=== PATIENT | male | born 1990 | race Caucasian/White ===

== ENCOUNTER 2018-04-27 10:13 | Emergency (ER) | payer OTHER ==
--- NOTE | 2018-04-27 10:59 | EDPHY ---
General Time Seen by Provider: 04/27/18 10:44 Narrative: CHIEF COMPLAINT: Dog bite to hand, right ankle injury HISTORY OF PRESENT ILLNESS: Patient presents with complaints of dog bites to both hands and a right ankle injury. This happened just prior to arrival. He says he was "walking with my new puppy," when another dog reportedly attacked. He attempted to break up the fight, and he was bit in the hands by the dog. He does not remember exactly what happened, but he thinks he rolled his right ankle inward. He has severe pain in the right ankle, limiting his ability to walk. He has minimal pain in the hands with some superficial punctures/bites to the dorsum of both hands. He has no bleeding from the hands. No injury elsewhere. Pain in the right ankle severe, limiting his ability to ambulate at this time. No numbness, tingling or weakness. No other associated complaints or modifying factors. TIME OF INJURY: Just prior to arrival TETANUS STATUS: Uncertain. The patient thinks it is less than 10 years and currently verifying with his physician in [place] MEDICAL/SURGICAL/SOCIAL HISTORY: Uncomplicated medical history. Patient uses a stick roller in [place] with telemedicine. REVIEW OF SYSTEMS: Ten systems reviewed and are negative unless otherwise noted in the HPI EXAMINATION General Appearance: Alert, no distress Head: normocephalic, atraumatic Cardiovascular: Symmetric radial pulses 2+. Symmetric DP pulses 2+. Good signs of perfusion to both lower extremities. Neurological: A&O, sensory symmetric, interossei strength is symmetric. Strength of the great toes is 5/5 symmetrically. Skin: Warm and dry, no rash. There is superficial punctures to the dorsum of the left hand, dorsum of the left index finger and dorsum of the right thumb. No bleeding. No laceration. No purulence or signs of subacute infection. Punctures appears stated age. Extremities: Minimal tenderness in the hands with full and symmetric range of motion of the hand and wrist. The right ankle is swollen with lateral malleolus tenderness. No crepitus or deformity. Range of motion of the ankles is limited due to pain on the right. No midfoot tenderness. No pain in the proximal right fibula. No pain in the right snuffbox or left snuffbox of the wrist. DIFFERENTIAL DIAGNOSES: Including but not limited to dog bite, puncture, ankle sprain, ankle fracture, subluxation, dislocation MDM: 11:00 a.m. Right ankle injury and dog bites to the left and right hand with x-ray revealing a nondisplaced right distal fibular fracture. No injury to the tibia. The lacerations/punctures of the hands are very superficial and do not require any repair, delayed or primary. Will irrigate these copiously. The right ankle will need to be splinted, I have chosen and boot and crutches for the patient. I will re-evaluate after irrigation of the wounds. 12:00 p.m. Wounds have been irrigated and he will be discharged home on Augmentin. He was at 1st hesitant to do so, but after discussing risks, benefits and alternatives he has agreed to proceed with Augmentin therapy. He has declined any pain medication or Tdap administration. He would like to verify this physician is current status. We discussed mandatory follow up with Orthopedics for definitive care of the ankle injury. He will contact his stick roller or a local stick roller further care for the hands. I discussed ED precautions for any redness, warmth, difficulty bending or straightening the fingers, purulence or fever. We discussed nonweightbearing on the right lower extremity until seen by Orthopedics for definitive care. He is comfortable this plan and discharged home stable condition. SUPERVISION: This patient was independently evaluated without direct involvement of or examination by the attending physician. ED Precautions: Worsening pain. Erythema, edema, cyanosis, pallor, paresthesia or anesthesia. - History Smoking Status: Never smoked - Objective Vital Signs: Initial Vital Signs Temperature (C) 97.3 F 04/27/18 10:22 Heart Rate 95 04/27/18 10:22 Respiratory Rate 16 04/27/18 10:22 Blood Pressure 127/80 H 04/27/18 10:22 O2 Sat (%) 92 04/27/18 10:22 O2 Delivery Mode Room Air Allergies/Adverse Reactions: No Known Allergies Allergy (Unverified 04/27/18 10:22) Home Medications: Medication Instructions Recorded Amoxicillin/Clavulanate Pot 875 mg PO BID #14 tab 04/27/18 [Augmentin 875 MG TAB (*)] Departure - Departure Disposition: Home, Routine, Self-Care Clinical Impression: Right fibular fracture Qualifiers: Encounter type: initial encounter Fibula location: distal Fracture type: closed Fracture morphology: unspecified fracture morphology Qualified Code(s): S82.831A - Other fracture of upper and lower end of right fibula, initial encounter for closed fracture Dog bite of hand without complication Qualifiers: Encounter type: initial encounter Laterality: unspecified laterality Qualified Code(s): S61.459A - Open bite of unspecified hand, initial encounter; W54.0XXA - Bitten by dog, initial encounter; W54.0XXA - Bitten by dog, initial encounter Condition: Good Instructions: Amoxicillin/Clavulanate Potassium (By mouth), Animal Bite (ED), Ankle Fracture (ED) Additional Instructions: 1. Ice and elevation to the right ankle as needed 2. Anti-inflammatories [id number] recommended as needed for the ankle pain 3. Augmentin antibiotic for the dog bites twice daily for 7 days 4. Recommend daily antibacterial wash to the dog bites 5. Return to emergency department for any redness, warmth, difficulty bending or straightening the fingers, fever 6. You will need to follow up with Orthopedics for definitive care of her ankle fracture Referrals: MARCELA BENNETT [Other] - As per Instructions Hamlet Carballo MD [Medical Doctor] - As per Instructions Prescriptions: Amoxicillin/Clavulanate Pot [Augmentin 875 MG TAB (*)] 875 mg PO BID #14 tab
[2018-04-27 11:13] VITALS: BP 145/76
== END 2018-04-27 11:33 | disposition home or self-care (01) ==
DX: S82.831A Other fracture of upper and lower end of right fibula, initial encounter for closed fracture (principal); S61.451A Open bite of right hand, initial encounter; W54.0XXA Bitten by dog, initial encounter
CPT/HCPCS: L4386